=== PATIENT | male | born 1970 | race Caucasian/White ===

== ENCOUNTER → 2025-11-12 09:20 | Outpatient (REF) | payer BC, SELFPAY | LOC: RCS 09:20 | PROVIDERS: ATTENDING PHYSICIAN Family Medicine; FAMILY PHYSICIAN Physician Assistant Medical | DX: R06.09 Other forms of dyspnea (principal); E88.01 Alpha-1-antitrypsin deficiency | CPT/HCPCS: 71046; 93017; 93306 ==